=== PATIENT | female | born 2000 | race Native Hawaiian/Other Pacific Islander ===

== ENCOUNTER 2020-01-16 15:48 | Emergency (ER) | payer MEDICAID ==
--- NOTE | 2020-01-16 16:19 | ER Document Report ---
HPI - HPI Patient complains to provider of: Bartholin cyst Time Seen by Provider: 01/16/20 16:03 Onset: Other - 2 weeks Onset/Duration: Waxing and waning Quality of pain: Achy Pain Level: 1 Context: Patient complains of Bartholin cyst right labia for the past 2 weeks. Patient states she is had one in the past in a similar location. Patient denies any fever or drainage. Patient denies any significant tenderness to the area. Associated Symptoms: Other - Swelling to the vaginal area Exacerbated by: Other - Start Relieved by: Denies Similar symptoms previously: Yes Recently seen / treated by doctor: No - ROS ROS below otherwise negative: Yes Systems Reviewed and Negative: Yes All other systems reviewed and negative - CONSTITUTIONAL Constitutional: DENIES: Fever, Chills - GASTROINTESTINAL Gastrointestinal: DENIES: Abdominal Pain, Nausea - URINARY Urinary: DENIES: Dysuria - REPRODUCTIVE Reproductive: REPORTS: Abnormal bleeding / discharge - Swelling to the vaginal area - DERM Skin Color: Normal Skin Problems: None Past Medical History - General Information source: Patient - Social History Smoking Status: Current Every Day Smoker Frequency of alcohol use: None Drug Abuse: None Occupation: None Family History: Reviewed & Not Pertinent - Medical History Medical History: Negative Past Surgical History: Reports: Other - Eye surgery Vertical Provider Document - CONSTITUTIONAL Agree With Documented VS: Yes Exam Limitations: No Limitations General Appearance: WD/WN, No Apparent Distress - HEENT HEENT: Atraumatic, Normocephalic - NECK Neck: Normal Inspection, Supple. negative: Lymphadenopathy-Left, Lymphadenopathy-Right - RESPIRATORY Respiratory: Breath Sounds Normal, No Respiratory Distress - CARDIOVASCULAR Cardiovascular: Regular Rate, Regular Rhythm - REPRODUCTIVE Female Genitalia: Abnormal Inspection - Bartholin's cyst to the right labia majora, visible white vaginal discharge - BACK Back: Normal Inspection - MUSCULOSKELETAL/EXTREMETIES Musculoskeletal/Extremeties: MAEW - NEURO Level of Consciousness: Awake, Alert, Appropriate Motor/Sensory: No Motor Deficit - DERM Integumentary: Warm, Dry Course - Re-evaluation Re-evalutation: 01/16/20 17:18 Patient denies any concerns about STD, cultures are pending at this time. Wet prep without any acute findings although exam was consistent with vaginal yeast infection. Will give patient a dose of Diflucan. Good return precautions discussed with patient. Will defer antibiotics at this time as patient did not have findings worrisome for a Bartholin abscess and there was no cellulitic findings. - Vital Signs Vital signs: Temp Pulse Resp BP Pulse Ox 98.2 F 69 20 143/69 H 100 01/16/20 15:54 01/16/20 15:54 01/16/20 15:54 01/16/20 15:54 01/16/20 15:54 Procedures - Incision and Drainage Right Labia Type: Simple Anesthetic type: 1% Lidocaine I&D procedure: Betadine prep applied Incision Method: Incision made with needle Amount/type of drainage: 12 cc of serous fluid drained from Bartholin cyst Notes: 01/16/20 17:09 Attempted vaginal approach for incision and drainage but was unsuccessful, took direct approach with needle and was able to aspirate drainage from the cystic lesion. Discharge - Discharge Clinical Impression: Bartholin cyst, Encounter for incision and drainage procedure Condition: Stable Disposition: HOME, SELF-CARE Instructions: Bartholin Gland Cyst or Abscess ([facility]) Additional Instructions: Return immediately for any new or worsening symptoms Followup with your primary care provider, call tomorrow to make a followup appointment Follow-up with qualitative researcher for any persistent problems Referrals: [facility] [Provider Group] - Follow up as needed
[2020-01-16] MEDS ORDERED: LIDOCAINE 1% INJ (10 MG/ML) 10 ML MDV INJ ONE (16:58)
[2020-01-16 17:09] LABS: BACTERIA (WET MOUNT) 3+ BACTERIA SEEN; T.VAGINALIS (WET MOUNT) NO TRICHOMONAS SEEN; WBCS (WET MOUNT) 1+ WBCS SEEN; YEAST (WET MOUNT) NO YEAST SEEN
[2020-01-16] MEDS ORDERED: FLUCONAZOLE 100 MG TABLET PO ONE (17:18)
[2020-01-16 17:42] VITALS: BP 126/63
[2020-01-16 20:20] LABS: CHLAM PCR NOT DETECTED (NOT DETECT)
== END 2020-01-16 17:39 | disposition home or self-care (01) ==
LOC: ER 15:48
DX: N75.0 Cyst of Bartholin's gland (principal); F17.200 Nicotine dependence, unspecified, uncomplicated
CPT/HCPCS: 87210; 87491; 87591; 99283